=== PATIENT | male | born 1950 | race Caucasian/White ===

== ENCOUNTER 2021-01-22 16:24 | Observation (INO) | payer MEDICARE, OTHER ==
[~2021-01-22] VITALS: Ht 167.6 cm; Wt 108.0 kg
[2021-01-22 17:08] LABS: HEMOGLOBIN 18.3 gm/dl (14.0-17.5); RED BLOOD COUNT 5.94 M/UL (4.20-5.50); WHITE BLOOD COUNT 4.8 K/UL (4.5-11.0)
[2021-01-22 17:30] LABS: BUN/CREATININE RATIO 19 (0-10)
[2021-01-22] MEDS ORDERED: SINGULAIR10 MG PO (23:38)
[2021-01-22] MEDS ORDERED: LOSARTAN-HCTZ1 EAC2 PO (23:38)
[2021-01-22] MEDS ORDERED: b12 SL (23:39)
[2021-01-22] MEDS ORDERED: ASPIRIN EC81 MG PO (23:40)
[2021-01-22] MEDS ORDERED: LEVOTHYROXINE200 MC1 PO (23:41)
[2021-01-22] MEDS ORDERED: [UNRECOGNIZED DRUG - CODE] PO (23:42)
[2021-01-22] MEDS ORDERED: NORVASC5 MG PO (23:44)
[2021-01-22] MEDS ORDERED: INDERAL TAB 4040 MG PO (23:45)
[2021-01-22] MEDS ORDERED: FENOFIBRATE160 MG PO (23:47)
[2021-01-22] MEDS ORDERED: METFORMIN HCL500 M2 PO (23:48)
[2021-01-22] MEDS ORDERED: diclofenac sodium TOP (23:54)
[2021-01-22] MEDS ORDERED: TYLENOL EXTRA500 MG PO (23:55)
[2021-01-23 06:11] LABS: HEMOGLOBIN 17.6 gm/dl (14.0-17.5); RED BLOOD COUNT 5.78 M/UL (4.20-5.50)
[2021-01-23 06:26] LABS: WHITE BLOOD COUNT 2.1 K/UL (4.5-11.0)
[2021-01-23] MEDS ORDERED: BUDESONIDE0.5 MG/2 M INH (12:17)
[2021-01-23] MEDS ORDERED: IPRAT-ALBUT 0.5-3 ML NEB (12:17)
[2021-01-23] MEDS ORDERED: DECADRON6 MG PO (12:20)
== END 2021-01-23 18:22 | disposition home or self-care (01) ==
LOC: ER1 16:24 → CDU 18:54 → MED SURG 4 18:54
PROVIDERS: Physician Assistant; ADMIT Internal Medicine
DX: U07.1 COVID-19 (principal); N17.9 Acute kidney failure, unspecified; J96.11 Chronic respiratory failure with hypoxia; J45.909 Unspecified asthma, uncomplicated; E87.1 Hypo-osmolality and hyponatremia; E11.9 Type 2 diabetes mellitus without complications; R74.01 Elevation of levels of liver transaminase levels; I11.0 Hypertensive heart disease with heart failure; I50.9 Heart failure, unspecified; E78.5 Hyperlipidemia, unspecified; R79.1 Abnormal coagulation profile; F17.220 Nicotine dependence, chewing tobacco, uncomplicated; Z99.81 Dependence on supplemental oxygen; Z91.19 Patient's noncompliance with other medical treatment and regimen; Z79.84 Long term (current) use of oral hypoglycemic drugs; Z79.899 Other long term (current) drug therapy
CPT/HCPCS: 0240U; 36415; 36600; 71045; 80053; 82550; 82553; 82803; 82962; 83036; 83735; 83874; 83880; 84439; 84443; 84484; 85025; 85027; 85379; 94640; 94664; 94760; 96372; 96374; 96376; 99285; G0378; J1100; J1650; J7030

== ENCOUNTER 2021-01-27 19:02 | Emergency (ER) | payer MEDICARE, OTHER ==
[~2021-01-27 19:02] MED LIST: ASPIRIN EC81 MG PO; BUDESONIDE0.5 MG/2 M INH; DECADRON6 MG PO; FENOFIBRATE160 MG PO; INDERAL TAB 4040 MG PO; IPRAT-ALBUT 0.5-3 ML NEB; LEVOTHYROXINE200 MC1 PO; LOSARTAN-HCTZ1 EAC2 PO; METFORMIN HCL500 M2 PO; NORVASC5 MG PO; SINGULAIR10 MG PO; TYLENOL EXTRA500 MG PO; [UNRECOGNIZED DRUG - CODE] PO; b12 SL; diclofenac sodium TOP
[2021-01-27 20:37] LABS: BUN/CREATININE RATIO 21 (0-10)
[2021-01-27 21:31] LABS: BORDETELLA PARAPERTUSSIS Not Detected (Not Detectd); BORDETELLA PERTUSSIS Not Detected (Not Detectd); CHLAMYDIA PNEUMONIAE Not Detected (Not Detectd); CORONAVIRUS HKU1 Not Detected (Not Detectd); CORONAVIRUS NL63 Not Detected (Not Detectd); CORONAVIRUS OC43 Not Detected (Not Detectd); CORONOAVIRUS 229E Not Detected (Not Detectd); HUMAN METAPNEUMOVIRUS Not Detected (Not Detectd); HUMAN RHINOVIRUS/ENTEROVIRUS Not Detected (Not Detectd); INFLUENZA A Not Detected (Not Detectd); INFLUENZA B Not Detected (Not Detectd); MYCOPLASMA PNEUMONIAE Not Detected (Not Detectd); PARAINFLUENZA VIRUS 1 Not Detected (Not Detectd); PARAINFLUENZA VIRUS 2 Not Detected (Not Detectd); PARAINFLUENZA VIRUS 3 Not Detected (Not Detectd); PARAINFLUENZA VIRUS 4 Not Detected (Not Detectd); RESPIRATORY SYNCYTIAL VIRUS Not Detected (Not Detectd)
[2021-01-27 21:35] LABS: SARS-CoV-2 DETECTED (Not Detectd)
[2021-01-27 22:32] LABS: HEMOGLOBIN 17.8 gm/dl (14.0-17.5); RED BLOOD COUNT 5.84 M/UL (4.20-5.50); WHITE BLOOD COUNT 6.1 K/UL (4.5-11.0)
[2021-01-27] MEDS ORDERED: AZITHROMYCIN250 MG PO (23:02)
== END 2021-01-28 02:25 | disposition home or self-care (01) ==
LOC: ER1 19:02
PROVIDERS: Physician Assistant
DX: Z23 Encounter for immunization (principal); U07.1 COVID-19; E11.9 Type 2 diabetes mellitus without complications; I11.0 Hypertensive heart disease with heart failure; I50.9 Heart failure, unspecified; J45.909 Unspecified asthma, uncomplicated; Z87.891 Personal history of nicotine dependence; Z88.6 Allergy status to analgesic agent
CPT/HCPCS: 36600; 71045; 80053; 82550; 82553; 82803; 83874; 83880; 84484; 85025; 87633; 93005; 94760; 96374; 99285; J1100; J7030; M0245; Q0245